=== PATIENT | female | born 1955 | race Caucasian/White ===

== ENCOUNTER → 2016-11-26 | Outpatient (CLI) | payer BC ==
[~2016-11-26] MED LIST: AMBCR125 PO; CLB100 PO; CYM60 PO; CYTM5 PO; METO25TA3 PO; OXYC-57 PO; OXYSR10 PO
[2016-12-04 12:02] LABS: O&P SOURCE OTHER-STOOL
== END | disposition home or self-care (01) ==
LOC: C.LAB 10:22
PROVIDERS: ATTEND Family Medicine
DX: R19.7 Diarrhea, unspecified (principal); R63.4 Abnormal weight loss

== ENCOUNTER → 2017-05-05 | Outpatient (CLI) | payer BC | END | disposition home or self-care (01) | LOC: C.PAPS 11:21 | PROVIDERS: ATTEND Obstetrics & Gynecology | DX: Z01.419 Encounter for gynecological examination (general) (routine) without abnormal findings (principal) ==

== ENCOUNTER → 2017-06-26 | Outpatient (CLI) | payer BC ==
--- NOTE | 2017-06-26 14:30 | MAMMOGRAPHY REPORT ---
BILATERAL DIGITAL SCREENING MAMMOGRAM TOMOSYNTHESIS WITH CAD: 06/26/2017 CLINICAL HISTORY: Routine screening. TECHNIQUE: Breast tomosynthesis in addition to standard 2D mammography was performed. Current study was also evaluated with a Computer Aided Detection (CAD) system. COMPARISON: Comparison is made to exams dated: 12/20/2015 mammogram, 12/13/2014 mammogram, 09/01/2013 [facility] mmogram, 11/13/2011 mammogram, 09/21/2010 mammogram, and 07/11/2009 mammogram - [facility]. BREAST COMPOSITION: There are scattered areas of fibroglandular density in both breasts. FINDINGS: No suspicious masses, calcifications, or areas of architectural distortion are noted in ei ther breast. There has been no significant interval change compared to prior exams. IMPRESSION: ACR BI-RADS CATEGORY 1: NEGATIVE There is no mammographic evidence of malignancy. A 1 year screening mammogram is recommended. The pa tient will receive written notification of the results. Approximately 10% of breast cancers are not detected with mammography. A negative mammographic report should not delay biopsy if a clinically suggestive mass is present. Ana Cristina Velasquez M.D. ah/:06/26/2017 13:51:32 Quality Assurance Technician: Eliezer MIRANDA(Stanley)(M), [facility] letter sent: Normal 1/2 BI-RADS Code: ACR BI-RADS Category 1: Negative
== END | disposition home or self-care (01) ==
LOC: C.MAMM 12:13
PROVIDERS: ATTEND Obstetrics & Gynecology
DX: Z12.31 Encounter for screening mammogram for malignant neoplasm of breast (principal)

== ENCOUNTER 2022-10-31 05:55 | Observation (INO) ==
--- NOTE | 2022-10-24 09:00 | Anesthesiology Consultation ---
Date of Service October 24, 2022 Assessment & Plan (1) Encounter for pre-operative examination: Chart Review Chart Review: Acceptable Risk for Surgery and Patient NOT seen in Pre Admission Testing - Will leave to anesthesia discretion if repeat EKG needed DOS -COVID screening: Per PAT nursing assessment on 10/24/22. No known COVID-19 positive contacts or current COVID-19 related symptoms. Travel screen negative. Patient vaccinated for Covid. At surgeon discretion if preop Covid testing being done. Pt seen in [place] 10/14/22= Patient presented with palpitations. Labs showed elevated D-dimer. Chest CTA showed no evidence of PE. Incidental finding of right renal mass concerning for possible renal cell carcinoma. Patient does have history of SVT. Given transient palpitations and sensation of lightheadednesswould be reasonable to follow-up as outpatient for Holter monitor. Patient has not had any episodes of arrhythmia here in the ED on the monitor, otherwise appears well no reassessment. Stable for outpatient management at this time given reassuring work-up. (Discussed with Dr. Bautista- give nature of procedure- patient can proceed as scheduled with surgery without further workup) History Surgery Operation Date: 10/31/22 07:30 Proposed Procedures p Robotic Laparoscopic Assisted Partial Nephrectomy, Possible Radical Right - Dre Chan, DO Height/Weight Height: 5 ft 9.5 in Weight: 88.451 kg Allergies Allergy/AdvReac Type Severity Reaction Status Date / Time adhesive Allergy Intermediate SKIN RXN Verified 10/24/22 07:38 TO CAT GUT SUTURES codeine AdvReac Mild Nausea Verified 10/24/22 07:38 Medications Home Medications Medication Instructions Recorded Confirmed Last Taken loratadine 10 mg tablet (Claritin) 10 mg PO QAM 03/22/22 10/24/22 Unknown tumeric 100 mg-maryellen 150 mg-olive 1 cap PO QAM 03/22/22 10/24/22 Unknown 50 mg-oreg 150 mg-caprylate capsule coenzyme Q10 100 mg capsule (Co 100 mg PO QAM 10/14/22 10/24/22 Unknown Q-10) cyanocobalamin (vitamin B-12) 1,000 mcg sublingual BID 10/14/22 10/24/22 Unknown 1,000 mcg sublingual lozenge metoprolol succinate 25 mg 12.5 mg PO BID 10/14/22 10/24/22 Unknown tablet,extended release 24 hr tramadol 50 mg tablet 50 - 100 mg PO Q6H PRN Pain 10/14/22 10/24/22 Unknown cholecalciferol (vitamin D3) 10 10 mcg PO QAM 10/24/22 10/24/22 Unknown mcg (400 unit) tablet (Vitamin D3) duloxetine 60 mg capsule,delayed 60 mg PO QAM 10/24/22 10/24/22 Unknown release estradiol 10 mcg vaginal tablet 10 mcg vaginal UD 10/24/22 10/24/22 Unknown (Yuvafem) magnesium 200 mg tablet 400 mg PO HS 10/24/22 10/24/22 Unknown Past Medical History Medical History Chronic fatigue 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 Klein [facility] Past Family History Family History Aunt Breast cancer maternal Colorectal cancer maternal Father Hypertension Myocardial infarction Mother Hypertension Breast cancer Denies family history of Ovarian cancer Prostate cancer Diabetes Past Surgical History Surgical History History of arthroplasty of knee RT. History of D&C History of gynecologic surgery Laparos fulguration uterine surface endometr tissue anterior Hx of colonoscopy Hx of LASIK Hx of wisdom tooth extraction Social History Smoking Status: Never smoker Do You Dip or Chew Tobacco: No Hx Alcohol Use: No Alcohol type: wine Hx Substance Use: No substance use type: does not use Lab Results Anesthesia Preop Results Results Anesthesia Widget: WBC 9.27 K/ul (4.8-10.8) 10/14/22 Hgb 13.3 g/dl (12.0-16.0) 10/14/22 Hct 39.3 % (37.0-47.0) 10/14/22 Plt 301 K/uL (130-400) 10/14/22 Na 142 mmol/L (136-145) 10/18/22 K 4.2 mmol/L (3.5-5.1) 10/18/22 Cl 107 mmol/L (98-107) 10/18/22 CO2 28 mmol/L (21-32) 10/18/22 BUN 21 mg/dl (6-23) 10/18/22 Creat 1.10 mg/dl (0.6-1.2) 10/18/22 Glucose Level 77 mg/dl (70-99(Fasting)) 10/18/22 PT 10.9 Seconds (9.0-12.0) 10/14/22 PTT 25.6 Seconds (21.0-31.0) 10/14/22 INR 1.0 (0.9-1.1) 10/14/22 TSH 1.771 uIu/ml (0.300-4.500) 10/14/22 Testing Laboratory Results (Surgeon's office informed no urine culture noted- will leave to surgeon's discretion if needed preoperatively) Electrocardiogram Date: 10/14/22 Findings: + ST @ (122bpm ) Right atrial enlargement. Nonspecific T wave abnormality in anterolateral leads When compared to EKG from May 21, 2011ventricular rate has increased by 45 bpm, nonspecific T wave abnormality now evident in anterior lateral leads per cardio Chest X-Ray Date: 10/14/22 Findings: + NAD FINDINGS: Cardiomediastinal and hilar silhouettes are within normal limits. No pneumothorax, pleural effusion, airspace consolidation or pulmonary edema. Degenerative changes of the shoulders and spine. Echocardiogram Date: 03/11/22 EF: 60-64% LV Function: normal RWMA: + none Other Findings: + diastolic dysfunction (Grade I ); no LVH Left atrium normal size Mild MR. Mild TR. Other Testing Abdomen/Pelvis CT 10/18/22= There is a large right enhancing renal mass concerning for malignancy. The mass does contact the inferior aspect of the ureter however no troy vascular encasement is seen. Chest CTA 10/14/22= No pulmonary embolus or aortic dissection. Decreased inspiration with vascular crowding, cannot exclude mild vascular congestion. Mild bilateral lower lobe atelectasis otherwise no acute cardiopulmonary disease. No pleural effusion or pneumothorax. Right mid upper renal pole heterogeneous mass concerning for renal carcinoma until proven otherwise, follow-up recommended with CT of the abdomen and pelvis for further characterization. Holter monitor 01/16/2022 = good quality. Dominant rhythmsinus rhythm, average rate 86 bpm. Rare PACs. PVCs occasional. No symptoms recorded. No atrial or ventricular arrhythmias, pauses or diagnostic ST changes noted
[2022-10-31] MEDS ORDERED: LR 15ML/HR IV SCH (06:00)
[2022-10-31] MEDS ORDERED: ceFAZolin 2000MG 2,000 MG/15 ML SYR IV SCH (06:00)
--- NOTE | 2022-10-31 06:56 | History & Physical Bridge Note ---
Date of Service October 31, 2022 History & Physical Bridge Note I have examined the patient, reviewed the History & Physical and in the interval since the performance of the History & Physical I have noted the following changes of clinical significance: no changes noted
[2022-10-31] MEDS ORDERED: ePHEDrine sulfate 50 MG/ML AMP IV PRN (07:02)
[2022-10-31] MEDS ORDERED: HYDROmorphone INJ 2 MG/ML SYR/VIAL IV PRN (07:02)
[2022-10-31] MEDS ORDERED: ONDANSETRON INJ 2 MG/ML 2 ML VIAL IV PRN ×2 (07:02→11:42)
[2022-10-31] MEDS ORDERED: ATROPINE SULFATE 0.1 MG/ML 10ML SYR IV PRN (07:02)
[2022-10-31] MEDS ORDERED: MIDAZOLAM HCL 1 MG/ML 2ML VIAL ONE (07:15)
[2022-10-31] MEDS ORDERED: fentaNYL citrate PF 100 MCG/2 ML VIAL ONE (07:15)
[2022-10-31] MEDS ORDERED: BUPIVACAINE 0.5 % 5 MG/1 ML MPF 30ML VIAL ONE ×2 (07:21→09:27)
[2022-10-31] MEDS ORDERED: DROPERIDOL 5 MG/2 ML VIAL IV PRN (07:46)
[2022-10-31] MEDS ORDERED: ROCURONIUM BROMIDE 10 MG/ML 5 ML VIAL IV ONE ×2 (08:24→09:21)
[2022-10-31] MEDS ORDERED: LIDOCAINE 2% 2 ML VIAL/AMP(20MG/ML) INFIL ONE (08:24)
[2022-10-31] MEDS ORDERED: PROPOFOL IV EMULSION 10 MG/ML 20 ML VIAL IV ONE ×2 (08:24→09:32)
[2022-10-31] MEDS ORDERED: DEXAMETHASONE SOD INJ 4 MG/ML VIAL ONE (08:24)
[2022-10-31] MEDS ORDERED: ePHEDrine sulfate 50 MG/ML AMP ONE (08:38)
[2022-10-31] MEDS ORDERED: ONDANSETRON INJ 2 MG/ML 2 ML VIAL ONE (10:05)
[2022-10-31] MEDS ORDERED: GLYCOPYRROLATE 0.2 MG/ML VIAL ONE (10:13)
[2022-10-31] MEDS ORDERED: NEOSTIGMINE METHYLSULFATE 1 MG/ML 10ML VIAL ONE (10:13)
[2022-10-31] MEDS ORDERED: BACITRACIN OINT 15 GM TUBE ONE (10:20)
--- NOTE | 2022-10-31 10:31 | Operative Report ---
PG Post Operative Report Pre & Post Diagnosis Operation Date: 10/31/22 07:30 Pre-Op Diagnosis: Mass of Right Kidney Post-Op Diagnosis: Mass of Right Kidney I identified the patient and participated in the time-out.: Yes Procedure Operation Date: 10/31/22 07:30 Actual Procedures p Right Robotic Assisted Laparoscopic Radical Nephrectomy(Right) - Dre Chan DO Surgeon Dre Chan, II, DO Cleaner Assistant QUINTON Fuentes Estimated Blood Loss 50 Findings Consistent with Post-Op Diagnosis Large Lower pole renal mass. Moderate adhesions of the right lateral wall Duplication of Renal Vessels with anterior set of vessels to the lower pole segment. Specimens Right Radical Kidney Drains 18 Fr Yanez Anesthesia Type General Complications none Disposition Disposition: Recovery Room Indications Patient with right renal mass suspicious for malignancy. Risks and benefits discussed at length. Description of Procedure The patient was brought to the operative suite and placed under general endotracheal intubation anesthesia in the supine position. The patient was transferred to lateral position with the right flank exposed. The patient was placed into a flex'ed position and then placed into mild reverse Trendelenberg. At this point, the patient prepped and draped in the usual sterile fashion and a timeout was completed. Preoperative weight based antibiotics had been given. DANNY's and SCD's were placed on the patient's lower extremities. A catheter was placed by nursing using sterile technique. With the time out completed the patient was flexed and the skin was marked. The lateral site was anesthetized. A small incision was made into the skin and subcutaneous tissues. A Varess needle was selected and placed. The needle was easily moved and it was irrigated and aspirated without any issues or concerns for placement. Insufflation commenced. The skin was then marked for port placement. A robotic port in the inferior position was marked and anesthetized. The skin was incised and all bleeding controlled. The 8 mm robotic port was placed. The abdominal cavity was further insufflated. The laparoscopic camera was placed and the abdominal cavity inspected. No concerning features were noted. At this point, the skin was marked for port placement and 8mm working ports were placed. The skin was anesthetized down to fascia and an approx 1cm incision was made to place the 2 x 8mm ports. A 12 mm industrial hire sales assistant port and a 12 mm Robotic Port were also placed in similar fashion under direct visualization. The robot was positioned and docked. The camera was placed and all trocars were positioned under direct visualization. Whitney Amaro was integral in port placement, camera utilization, and docking procedure. She also assisted during the lysis of adhesions. She remained in sterile attire and then proceeded to assist the remainder of the case. The colon was mobilized medially to expose the retroperitoneum and the area assessed. Adhesions were freed to allow mobilization. A small amount of further adhesions were noted from the colon and were freed. These were dissected with blunt technique. Cautery was used to assist dissection and control bleeding. The retroperitoneal fat was assessed. Starting distally the retroperitoneum was dissected and care was taken to dissect down near the IVC. The gonadal vein and ureter were identified. This was then followed superiorly. Dissection stayed toward the midline along the IVC and the ureter and gonadal vein were followed up towards the renal hilum. The dissection was followed to the renal pelvis. The large lower pole mass was notable as it did cause some displacement of the ureter. It took up the majority of the retroperitoneum in the inferior position. Dissection was carefully taken upwards. A number of accessory veins appear to be seen within the retroperitoneal fat along with dissection. Care was taken to control these vessels with no major episodes of bleeding. The inferior branch of the renal Vein was identified and exposed. With further dissection it was discovered that the branch was its own separate renal vein going to the vena cava directly. Just superior/posterior to the accessory renal vein was a branch of the renal artery which was also carried up towards the main renal artery. This appeared to branch directly off of the main renal artery however it was behind the vena cava and was unable to be completely confirmed. May have also been its own separate branch and accessory renal artery. The renal vein was directly posterior to the accessory vein and artery. The accessory vein and artery were both going directly to the renal mass. The renal mass appeared to incorporate the vasculature with branches coming off of the main renal vein and artery also going down into the large mass. The mass also appeared to be pushing/compressing on the renal vasculature. Based on assessment of the mass and the location of the vessels it was determined that partial nephrectomy was not going to be possible due to the incorporation of the major vasculature. At this point the accessory renal vein and artery were completely cleared and freed. The renal artery was further cleaned and freed but due to its location posterior to the accessory artery and vein as well as the main renal vein dissection was somewhat limited. The accessory artery did the run parallel to the main renal artery behind the vena cava and did appear to possibly branch off of the main renal artery. This was dissected as much as possible however due to its location behind the vena cava was unable to be fully visualized. With the major vessels largely cleaned off further dissection was assessed and determined that the accessory vessels were going to need to be ligated and incised before any further dissection could be completed. The larger robotic port was then utilized to place a robot-assisted endovascular stapler. Using the vascular load. The accessory renal vein and artery had already been freed and isolated. Using the stapler the vein and artery were able to be ligated and incised. No major bleeding upon the release of the stapling device. The vessels were further assessed. The location of the renal artery and need for further dissection a Hem-o-stef clip was placed across this accessory vessel. Further dissection was then taken superior. The renal artery was then further cleared. A additional upper pole branch was then assessed and appeared to be going up towards the renal hilum. This vessel was largely in the way of dissection to completely clear the renal artery and have access for ligation. Due to this 3 x hemolock clips were placed and the superior branch of the renal vein was incised. The renal artery and vein were then completely exposed. 2 stapling loads were then utilized 1 across the renal artery and the one across the renal vein. No major issues with bleeding and both were able to be incised well without any major issue. The artery veins and stumps were then assessed. No major bleeding or issues. A piece of Surgicel was placed over the vessels. The kidney was then freed further posteriorly superiorly and laterally. Care was taken superiorly to dissect free from the adrenal gland. This was able to be assessed and was spared without any major issues or problems. Additional accessory venous structures within the retroperitoneal fat were cauterized and ligated. The entire area was dissected free. At this point the kidney was completely freed except for its inferior attachments with a small amount of retroperitoneal fat and the ureter. A final staple load was then utilized across the ureter. The kidney was then completely free. The wound bed was then further assessed. Any fluid was able to be suctioned away. No major episodes of bleeding or other issues. No major bruising or other concerns. No injury to surrounding tissues or other problems. Additional Surgicel sheets were placed over the renal vessels as well as the adrenal gland and the superior retroperitoneal fat. The liver was assessed and no major areas of issues. Hemostatic agents Tisseel and Floseal were also placed. Hemostatic agent was also placed on the vessels. No major bleeding or other issues. The entire dissection space was inspected one final time. No bleeding or injuries or areas of concern were noted. No tumor or other concerning features were noted. At this point, the robot was undocked and moved away from the patient. The port sites were all assessed laparoscopically. The midline 12 mm port site was closed with the Bk-Major device and were closed with Vicryl suture. The other ports were assessed and no issues observed. The inferior 12 mm robotic port was opened further exposing fascia which was then opened in order to removed the kidney. The skin had been marked and further anesthetized. Due to the large mass the incision had to be extended. A Gupta like excision was planned. The skin was then incised. The fascia further exposed. With the fascia exposed there was then incised. The kidney was able to be grasped and removed. The entire area was then inspected. No major areas of bleeding or other issues. A PDS suture was used to close fascia. Care was taken to close the fascial completely. And good closure was achieved. A 2-0 Vicryl suture was then used to close the subcutaneous tissues. The skin at each site was closed with a running monocryl suture. The area was cleaned and bandages placed on each incision. The patient was cleaned and bandaged. The patient was moved back into the supine position The patient was cleaned, aroused from anesthesia, and transferred to the pacu in stable condition having tolerated the procedure well with no complications. I was present and participated in all aspects of the procedure. QUINTON Fuentes was critical in the portions as mentioned above. We will plan to monitor patient overnight. We will likely follow-up in approximately 10 to 14 days for pathology and assessment I attest to the content of the Intraoperative Record and any orders documented therein. Any exceptions are noted below.
[2022-10-31] MEDS: fentaNYL citrate PF 100 MCG/2 ML VIAL IV PRN ×2 (10:54→11:10)
--- NOTE | 2022-10-31 11:31 | Anesthesiology Progress Note ---
Date of Service October 31, 2022 Anesthesia Post Procedure Vital Signs Vital Signs: Temp Pulse Pulse Resp BP Pulse Ox O2 Del Method 10/31/22 11:29 89 14 126/77 100 Nasal Cannula 10/31/22 11:19 36.4 C L 92 H 16 118/74 100 Nasal Cannula 10/31/22 11:10 83 16 118/72 100 Nasal Cannula 10/31/22 11:00 74 16 126/79 100 Nasal Cannula 10/31/22 10:50 70 16 139/81 100 Nasal Cannula 10/31/22 10:40 36.3 C L 80 15 141/76 H 100 Nasal Cannula 10/31/22 06:35 37 C 84 18 163/98 H 96 Room Air O2 Flow Rate 10/31/22 11:29 2 10/31/22 11:19 2 10/31/22 11:10 2 10/31/22 11:00 3 10/31/22 10:50 3 10/31/22 10:40 3 10/31/22 06:35 Pain Intensity Bilateral: Pain Intensity: 2 Abdomen: Pain Intensity: 5 Transfer of Care Handoff Completed per policy Notes Mental Status: alert / awake / arousable and participated in evaluation Patient Amnestic to Procedure: Yes Nausea / Vomiting: adequately controlled Pain: adequately controlled Airway Patency, RR, SpO2: stable & adequate BP & HR: stable & adequate Hydration State: stable & adequate Anesthetic Complications: no major complications apparent and Pt Satisfied with anesthetic care
[2022-10-31 11:40] LABS: Basophils # (auto) 0.05 K/uL (0-0.2); Basophils % (auto) 0.4 %; Eosinophils # (auto) 0.01 K/uL (0-0.50); Eosinophils % (auto) 0.1 %; Hemoglobin 12.2 g/dl (12.0-16.0); Immature Granulocytes # (auto) 0.06 K/uL (0.01-0.20); Immature Granulocytes % (auto) 0.4 %; Lymphocytes # (auto) 1.33 K/uL (1.2-3.4); Lymphocytes % (auto) 9.4 %; Mean Corpuscular Hemoglobin 29.6 pg (25.0-34.0); Mean Corpuscular Volume 89.8 fL (80.0-100.0); Mean Platelet Volume 8.8 fL (9.4-12.4); Monocytes # (auto) 0.59 K/uL (0.11-0.59); Monocytes % (auto) 4.2 %; Neutrophils # (auto) 12.11 K/uL (1.40-6.50); Neutrophils % (auto) 85.5 %; Platelet Count 246 K/uL (130-400); RDW Coefficient of Variation 13.5 % (11.5-14.5); RDW Standard Deviation 44.2 fL (36.4-46.3); Red Blood Count 4.12 M/uL (4.20-5.40); White Blood Count 14.15 K/ul (4.8-10.8)
[2022-10-31] MEDS ORDERED: oxyCODONE HCL IR 5 MG TAB (IMMEDIATE RELEASE) PO PRN (11:42)
[2022-10-31] MEDS ORDERED: MoRPHine SULFATE 2 MG/ML CARP IV PRN (11:44)
[2022-10-31 11:55] LABS: BUN Creatinine Ratio 17.8 (10-20); Calcium 8.5 mg/dl (8.6-10.3); Creatinine Clr Calc Pharmacy 67.3 ml/min; Est GFR (African American) 68.1 ml/min; Est GFR (Non-African American) 58.8 ml/min; Potassium 4.1 mmol/L (3.5-5.1)
[2022-10-31] MEDS: LACTATED RINGER'S 1,000 ML IV SCH ×2 (12:25→22:12)
[2022-10-31] MEDS ORDERED: METOPROLOL SUCC 25MG EXT REL TAB PO PRN (12:48)
[2022-10-31] MEDS: MoRPHine SULFATE 2 MG/ML CARP IV PRN (14:19)
[2022-10-31] MEDS: ACETAMINOPHEN 325 MG TAB PO PRN ×2 (14:40→22:11)
[2022-10-31] MEDS: ceFAZolin 2000MG 2,000 MG/15 ML SYR IV SCH ×2 (14:56→22:53)
--- NOTE | 2022-10-31 15:19 | Communication Note ---
Date of Service: October 31, 2022 Contacted by nursing that patient is complaining of right eye pain saying "feels like something scratched it or something is stuck in there." Nursing tried artificial tears with no improvement. Discussed with anesthesia, Dr. Mccray, who recommended treating as possible corneal abrasion with Ofloxacin drops TID x 3 days. Order placed. Discussed with patient. Nursing aware. Will continue to monitor.
[2022-10-31] MEDS: oxyCODONE HCL IR 5 MG TAB (IMMEDIATE RELEASE) PO PRN ×2 (18:08→22:09)
[2022-10-31] MEDS: OFLOXACIN 0.3% 75 DROPS/5 ML BTL OP SCH (21:10)
[2022-10-31] MEDS: DOCUSATE SODIUM 100 MG CAP PO SCH (21:56)
[2022-10-31] MEDS: traZODone HCL 50 MG TAB PO SCH (21:56)
[2022-10-31] MEDS: HEPARIN SOD 5,000 UNIT/0.5 ML VIAL SQ SCH (22:52)
[2022-10-31] MEDS: METOPROLOL SUCC 25MG EXT REL TAB PO SCH (22:52)
[2022-11-01] MEDS: oxyCODONE HCL IR 5 MG TAB (IMMEDIATE RELEASE) PO PRN ×4 (02:21→20:36)
[2022-11-01 06:46] LABS: Basophils # (auto) 0.01 K/uL (0-0.2); Basophils % (auto) 0.1 %; Hematocrit (blood only) 34.8 % (37.0-47.0); Hemoglobin 11.6 g/dl (12.0-16.0); Immature Granulocytes # (auto) 0.02 K/uL (0.01-0.20); Immature Granulocytes % (auto) 0.2 %; Lymphocytes # (auto) 2.06 K/uL (1.2-3.4); Lymphocytes % (auto) 21.2 %; Mean Corpuscular Hemoglobin 29.6 pg (25.0-34.0); Mean Corpuscular Hgb Conc 33.3 g/dL (32.0-36.0); Mean Corpuscular Volume 88.8 fL (80.0-100.0); Mean Platelet Volume 8.7 fL (9.4-12.4); Monocytes # (auto) 1.16 K/uL (0.11-0.59); Monocytes % (auto) 11.9 %; Neutrophils # (auto) 6.46 K/uL (1.40-6.50); Neutrophils % (auto) 66.6 %; Platelet Count 240 K/uL (130-400); RDW Coefficient of Variation 13.8 % (11.5-14.5); RDW Standard Deviation 44.8 fL (36.4-46.3); Red Blood Count 3.92 M/uL (4.20-5.40); White Blood Count 9.71 K/ul (4.8-10.8)
[2022-11-01 06:54] LABS: BUN Creatinine Ratio 11.5 (10-20); Calcium 8.5 mg/dl (8.6-10.3); Creatinine Clr Calc Pharmacy 51.9 ml/min; Est GFR (African American) 49.7 ml/min; Est GFR (Non-African American) 42.9 ml/min; Potassium 4.2 mmol/L (3.5-5.1)
[2022-11-01] MEDS: MoRPHine SULFATE 2 MG/ML CARP IV PRN (07:37)
--- NOTE | 2022-11-01 08:35 | Urology Progress Note ---
Date of Service November 01, 2022 Assessment & Plan (1) Mass of right kidney: Plan POD#1 s/p Right Robotic Assisted Laparoscopic Radical Nephrectomy with Dr. Chan for concern of renal malignancy. - Doing well, progressing as expected. - Afebrile and hemodynamically stable. - Lab work reviewed - wbc 9.71, hemoglobin 11.6, creatinine 1.31 today as expected following procedure. - Jiang with good output, urine is clear. - Tolerating clear liquid diet. - Advance diet. - Remove jiang - monitor for void. - Reports moderate pain this morning -Continue pain regimen. - Had right eye discomfort yesterday, improved with ofloxacin drops - will continue. - Encourage OOB ambulation. - Will reassess after lunch- possibly home later today or tomorrow pending patient progression. Admission and Anticipated Discharge Date Admission Date: October 31, 2022 Subjective Patient examined at bedside this AM. Awake, resting in bed on arrival. No acute distress. No fevers. Vitals stable. Incisions appropriate. Still with moderate pain this morning, managing with IV morphine. Jiang draining clear yellow urine. She did have right eye discomfort yesterday, has improved with ofloxacin drops. Tolerating clear liquids. No nausea or vomiting. +Flatus. Plans to ambulate with nursing after breakfast. Review of Systems Constitutional: as per Subjective / HPI Gastrointestinal: as per Subjective / HPI Genitourinary: as per Subjective / HPI Physical Exam Constitutional: no acute distress Respiratory: no respiratory distress and no labored breathing Gastrointestinal (Abdomen): Abdomen soft, mildly tender with palpation. Incisions appropriate, dermabond intact. Some mild bruising around incision site. No drainage. Skin: No visible rashes or lesions to exposed skin areas Neurologic: moves all extremities and awake Psychiatric: A+Ox3, euthymic affect Genitourinary: Jiang intact, urine is clear Results & Data Vital Signs (Past 12 Hours) Vital Signs Temp Pulse Resp BP Pulse Ox O2 Del Method 11/01/22 07:22 36.7 C 85 16 135/74 95 Room Air 11/01/22 02:38 37.0 C 81 16 156/81 H 96 Room Air 11/01/22 00:43 Room Air 10/31/22 22:20 36.9 C 90 16 154/73 H 97 Room Air PG Care Time/CCT Total # of Minutes Spent Total Time Spent with Patient: Total time spent is greater than 50% in coordination of care (as documented) at patient's floor/unit and/or counseling patient: Coding Level of Care Code None Diagnoses Mass of right kidney N28.89
[2022-11-01] MEDS: ACETAMINOPHEN 325 MG TAB PO PRN ×2 (08:45→15:16)
[2022-11-01] MEDS: METOPROLOL SUCC 25MG EXT REL TAB PO SCH ×2 (08:46→20:36)
[2022-11-01] MEDS: HEPARIN SOD 5,000 UNIT/0.5 ML VIAL SQ SCH ×2 (08:47→20:37)
[2022-11-01] MEDS: LORATADINE 10 MG TAB PO SCH (08:49)
[2022-11-01] MEDS: DULoxetine HCL 60 MG CAP PO SCH (08:49)
[2022-11-01] MEDS: DOCUSATE SODIUM 100 MG CAP PO SCH ×2 (08:50→20:36)
[2022-11-01] MEDS: OFLOXACIN 0.3% 75 DROPS/5 ML BTL OP SCH ×3 (08:51→20:35)
[2022-11-01] MEDS: LACTATED RINGER'S 1,000 ML IV SCH (14:20)
[2022-11-01] MEDS: traZODone HCL 50 MG TAB PO SCH (20:36)
[2022-11-02] MEDS: ACETAMINOPHEN 325 MG TAB PO PRN ×2 (00:19→08:29)
[2022-11-02] MEDS: LACTATED RINGER'S 1,000 ML IV SCH ×2 (00:19→10:12)
[2022-11-02] MEDS: oxyCODONE HCL IR 5 MG TAB (IMMEDIATE RELEASE) PO PRN ×3 (00:40→09:02)
[2022-11-02 06:17] LABS: Basophils # (auto) 0.03 K/uL (0-0.2); Basophils % (auto) 0.4 %; Eosinophils # (auto) 0.04 K/uL (0-0.50); Eosinophils % (auto) 0.5 %; Hematocrit (blood only) 35.2 % (37.0-47.0); Hemoglobin 11.7 g/dl (12.0-16.0); Immature Granulocytes # (auto) 0.02 K/uL (0.01-0.20); Immature Granulocytes % (auto) 0.2 %; Lymphocytes # (auto) 3.03 K/uL (1.2-3.4); Lymphocytes % (auto) 35.5 %; Mean Corpuscular Hemoglobin 29.3 pg (25.0-34.0); Mean Corpuscular Hgb Conc 33.2 g/dL (32.0-36.0); Mean Platelet Volume 8.4 fL (9.4-12.4); Monocytes # (auto) 0.91 K/uL (0.11-0.59); Monocytes % (auto) 10.7 %; Neutrophils % (auto) 52.7 %; Platelet Count 227 K/uL (130-400); RDW Standard Deviation 45.1 fL (36.4-46.3); White Blood Count 8.53 K/ul (4.8-10.8)
[2022-11-02 06:44] LABS: BUN Creatinine Ratio 12.3 (10-20); Creatinine Clr Calc Pharmacy 55.7 ml/min; Est GFR (African American) 54.2 ml/min; Est GFR (Non-African American) 46.8 ml/min; Potassium 3.8 mmol/L (3.5-5.1)
[2022-11-02] MEDS: DOCUSATE SODIUM 100 MG CAP PO SCH (08:21)
[2022-11-02] MEDS: DULoxetine HCL 60 MG CAP PO SCH (08:21)
[2022-11-02] MEDS: LORATADINE 10 MG TAB PO SCH (08:21)
[2022-11-02] MEDS: OFLOXACIN 0.3% 75 DROPS/5 ML BTL OP SCH (08:22)
[2022-11-02] MEDS: METOPROLOL SUCC 25MG EXT REL TAB PO SCH (08:22)
[2022-11-02] MEDS: HEPARIN SOD 5,000 UNIT/0.5 ML VIAL SQ SCH (08:22)
--- NOTE | 2022-11-02 11:19 | Urology Progress Note ---
Date of Service November 02, 2022 Assessment & Plan (1) Right kidney mass: Plan: Postop day #2 status post right radical nephrectomy Recovering appropriately Plan for discharge home now Admission and Anticipated Discharge Date Admission Date: October 31, 2022 Subjective Doing much better today Pain is well controlled when at rest, some discomfort when ambulatory, however she thinks it is tolerable as long as she has pain medication Tolerating a diet Anxious to go home Labs all stable Creatinine 1.2 Hemoglobin unchanged from yesterday Hemodynamically appropriate Physical Exam Physical Exam: Incisions appropriate, minimal ecchymosis around the lower extraction site, soft abdomen and appropriately tender Results & Data Vital Signs (Past 12 Hours) Vital Signs Temp Pulse Resp BP Pulse Ox O2 Del Method O2 Flow Rate 11/02/22 08:32 Nasal Cannula 1.5 11/02/22 07:31 36.6 C 91 H 16 136/77 94 Nasal Cannula 1.5 PG Care Time/CCT Total # of Minutes Spent Total Time Spent with Patient: Total time spent is greater than 50% in coordination of care (as documented) at patient's floor/unit and/or counseling patient: Coding Level of Care Code None Diagnoses Right kidney mass N28.89
== END 2022-11-02 11:47 | disposition home or self-care (01) ==
LOC: ASU 05:55 → INTOOBSV 10:45 → 3E 10:45